=== PATIENT | male | born 1930 | race Asian ===

== ENCOUNTER 2017-09-28 21:16 | Inpatient (IN) | payer MEDICAID, MEDICARE ==
[~2017-09-28] VITALS: Ht 157.5 cm; Wt 37.6 kg
[2017-09-28 22:17] LABS: RED CELL DISTRIBUTION WIDTH 13.6 % (11.5-14.5)
[2017-09-28 22:22] LABS: BASOPHIL % 0 % (0-2); PLATELET COUNT 89 x10^3mcL (130-400)
[2017-09-28 22:48] LABS: CALCIUM 8.6 mg/dL (8.5-10.1); CARBON DIOXIDE 34.9 mmol/L (21-32); CHLORIDE SERUM 88 mmol/L (98-107); CREATININE SERUM 0.8 mg/dL (0.7-1.3); GLUCOSE SERUM 107 mg/dL (74-106); POTASSIUM SERUM 4.4 mmol/L (3.5-5.1); SODIUM SERUM 126 mmol/L (136-145)
[2017-09-28 22:57] LABS: ALBUMIN 3.4 g/dL (3.4-5.0); ALKALINE PHOSPHATASE 74 U/L (46-116); ALT/SGPT 20 U/L (16-63); AST/SGOT 29 U/L (15-37); BILIRUBIN TOTAL 0.5 mg/dL (0.20-1.00); FREE T4 1.21 ng/dL (0.76-1.46)
[2017-09-28 22:58] LABS: TOTAL PROTEIN, SERUM 9.1 g/dL (6.4-8.2)
[2017-09-29] VITALS (7 sets, daily range): BP systolic 113–163; BP diastolic 57–75; Ht 157.5 cm; Wt 37.6 kg
[2017-09-29] MEDS ORDERED: FERROUS SULFAT325 M2 PO (00:25)
[2017-09-29] MEDS ORDERED: OMEPRAZOLE40 M1 PO (00:26)
[2017-09-29] MEDS ORDERED: SPIRIVA18 MC1 INH (00:26)
[2017-09-29] MEDS ORDERED: VENTOLIN H0.09 MG/A1 INH (00:27)
[2017-09-29 00:36] LABS: microscopic required? YES; urine erythrocyte 2+ (NEGATIVE)
[2017-09-29 00:43] LABS: MAGNESIUM 1.8 mg/dL (1.8-2.4); PHOSPHOROUS 2.8 mg/dL (2.5-4.9)
[2017-09-29 00:45] LABS: CHOLESTEROL/HDL RATIO 1.5
[2017-09-29 00:46] LABS: AMPHETAMINE QUAL UR NONE DETECTED (NEG <=1000)
[2017-09-29 07:23] LABS: CARBON DIOXIDE 32.9 mmol/L (21-32); CHLORIDE SERUM 90 mmol/L (98-107); CREATININE SERUM 0.7 mg/dL (0.7-1.3); GLUCOSE SERUM 90 mg/dL (74-106); POTASSIUM SERUM 4.3 mmol/L (3.5-5.1); SODIUM SERUM 128 mmol/L (136-145)
[2017-09-29 07:25] LABS: BASOPHIL % 0.2 % (0-2); PLATELET COUNT 78 x10^3mcL (130-400); RED CELL DISTRIBUTION WIDTH 13.5 % (11.5-14.5)
[2017-09-30 04:57] VITALS: BP 128/59
[2017-09-30 08:01] LABS: CALCIUM 7.8 mg/dL (8.5-10.1); CARBON DIOXIDE 31.9 mmol/L (21-32); CHLORIDE SERUM 90 mmol/L (98-107); CREATININE SERUM 0.6 mg/dL (0.7-1.3); GLUCOSE SERUM 102 mg/dL (74-106); MAGNESIUM 1.6 mg/dL (1.8-2.4); PHOSPHOROUS 2.8 mg/dL (2.5-4.9); POTASSIUM SERUM 4.4 mmol/L (3.5-5.1); SODIUM SERUM 125 mmol/L (136-145)
[2017-09-30 08:07] LABS: BASOPHIL % 0.1 % (0-2); RED CELL DISTRIBUTION WIDTH 13.1 % (11.5-14.5)
[2017-09-30 08:12] LABS: PLATELET COUNT 72 x10^3mcL (130-400)
[2017-09-30 09:03] VITALS: BP 131/60
[2017-09-30 12:51] VITALS: BP 143/66
[2017-09-30 17:33] VITALS: BP 134/62
[2017-09-30 19:30] VITALS: BP 135/67
[2017-10-01 06:13] VITALS: BP 151/72
[2017-10-01 09:41] VITALS: BP 156/74
[2017-10-01 10:00] LABS: BASOPHIL % 0.3 % (0-2); RED CELL DISTRIBUTION WIDTH 13.8 % (11.5-14.5)
[2017-10-01 10:03] LABS: PLATELET COUNT 84 x10^3mcL (130-400)
[2017-10-01 10:24] LABS: CALCIUM 7.9 mg/dL (8.5-10.1); CARBON DIOXIDE 30.9 mmol/L (21-32); CHLORIDE SERUM 89 mmol/L (98-107); CREATININE SERUM 0.6 mg/dL (0.7-1.3); GLUCOSE SERUM 96 mg/dL (74-106); MAGNESIUM 1.7 mg/dL (1.8-2.4); POTASSIUM SERUM 4.7 mmol/L (3.5-5.1)
[2017-10-01 10:51] LABS: SODIUM SERUM 124 mmol/L (136-145)
[2017-10-01 16:56] VITALS: BP 139/73
[2017-10-01] MEDS ORDERED: LEVAQUIN750 MG PO ×3 (17:25→17:39)
[2017-10-01] MEDS ORDERED: LAC PO ×2 (17:25→17:39)
[2017-10-01] MEDS ORDERED: SODIUM CHLORIDE1 G2 PO ×2 (17:27→17:39)
[2017-10-01] MEDS ORDERED: FLONS (17:39)
[2017-10-01] MEDS ORDERED: SPIRIVA18 MC1 INH (17:39)
[2017-10-01] MEDS ORDERED: OMEPRAZOLE40 M1 PO (17:39)
[2017-10-01] MEDS ORDERED: FERROUS SULFAT325 M2 PO (17:39)
[2017-10-01] MEDS ORDERED: VENTOLIN H0.09 MG/A1 INH (17:39)
[2017-10-01 18:15] VITALS: BP 139/73
[2017-10-01 18:20] VITALS: BP 139/73
== END 2017-10-01 19:16 | disposition home health service (06) | DRG 137 ==
LOC: ED 21:16 → DU 23:20 → MU 23:20 → DU 09-29 01:20 → MU 09-30 08:15
PROVIDERS: Emergency Medicine; Family Medicine
DX: J69.0 Pneumonitis due to inhalation of food and vomit (principal); J96.22 Acute and chronic respiratory failure with hypercapnia; N17.0 Acute kidney failure with tubular necrosis; G93.41 Metabolic encephalopathy; E44.0 Moderate protein-calorie malnutrition; D69.6 Thrombocytopenia, unspecified; E87.1 Hypo-osmolality and hyponatremia; J84.10 Pulmonary fibrosis, unspecified; N39.0 Urinary tract infection, site not specified; E86.0 Dehydration; R80.9 Proteinuria, unspecified; K59.00 Constipation, unspecified; D63.8 Anemia in other chronic diseases classified elsewhere; N28.1 Cyst of kidney, acquired; M62.50 Muscle wasting and atrophy, not elsewhere classified, unspecified site; M85.80 Other specified disorders of bone density and structure, unspecified site; Z68.1 Body mass index [BMI] 19.9 or less, adult; Z95.0 Presence of cardiac pacemaker
CPT/HCPCS: 36600; 83880; 84439; 87804; 92610; J1956; J2543; J3475; J3490; J7030; J7040; J7620; Q0092

== ENCOUNTER 2017-12-24 15:39 | Inpatient (IN) | payer MEDICAID, MEDICARE ==
[~2017-12-24] VITALS: Ht 167.6 cm; Wt 47.7 kg
[~2017-12-24 15:39] MED LIST: FERROUS SULFAT325 M2 PO; FLONS; LAC PO; LEVAQUIN750 MG PO; OMEPRAZOLE40 M1 PO; SODIUM CHLORIDE1 G2 PO; SPIRIVA18 MC1 INH; VENTOLIN H0.09 MG/A1 INH
[2017-12-24 15:44] VITALS: Ht 167.6 cm; Wt 47.7 kg
[2017-12-24 16:10] LABS: RED CELL DISTRIBUTION WIDTH 12.5 % (11.5-14.5)
[2017-12-24 16:12] LABS: BASOPHIL % 0 % (0-2); PLATELET COUNT 115 x10^3mcL (130-400)
[2017-12-24 16:35] LABS: ALKALINE PHOSPHATASE 95 U/L (46-116); ALT/SGPT 20 U/L (16-63); AST/SGOT 24 U/L (15-37); BILIRUBIN TOTAL 0.4 mg/dL (0.20-1.00); CALCIUM 8.7 mg/dL (8.5-10.1); CARBON DIOXIDE 36.6 mmol/L (21-32); CHLORIDE SERUM 82 mmol/L (98-107); CREATININE SERUM 0.6 mg/dL (0.7-1.3); GLUCOSE SERUM 105 mg/dL (74-106); POTASSIUM SERUM 4.8 mmol/L (3.5-5.1)
[2017-12-24 16:37] LABS: ALBUMIN 3.1 g/dL (3.4-5.0)
[2017-12-24 16:39] LABS: SODIUM SERUM 121 mmol/L (136-145)
[2017-12-24 17:09] LABS: CK-MB 1.4 ng/mL (0-3.6)
[2017-12-24 17:38] LABS: MAGNESIUM 1.8 mg/dL (1.8-2.4)
[2017-12-24 17:39] LABS: CHOLESTEROL/HDL RATIO 1.7
[2017-12-24 17:47] LABS: FREE T4 1.45 ng/dL (0.76-1.46); FREE THYROXINE INDEX 3.3 ug/dL (1.4-4.5); T3 TOTAL 0.61 ng/mL; T4(THYROXINE) 8.1 ug/dL (4.7-13.3)
[2017-12-24 17:56] LABS: UA SPECIFIC GRAVITY 1.015 (1.005-1.035); microscopic required? YES; urine erythrocyte TRACE (NEGATIVE)
[2017-12-24] MEDS ORDERED: DILTIAZEM HCL120 M2 PO (18:23)
[2017-12-24] MEDS ORDERED: LEFLUNOMIDE20 MG PO (18:24)
[2017-12-24 19:07] VITALS: BP 175/98
[2017-12-24 21:58] VITALS: BP 167/98
[2017-12-24 23:17] VITALS: BP 110/63
[2017-12-25 05:44] VITALS: BP 139/60
[2017-12-25 06:59] LABS: CALCIUM 8.4 mg/dL (8.5-10.1); CARBON DIOXIDE 33.8 mmol/L (21-32); CHLORIDE SERUM 86 mmol/L (98-107); CREATININE SERUM 0.7 mg/dL (0.7-1.3); GLUCOSE SERUM 122 mg/dL (74-106); MAGNESIUM 1.8 mg/dL (1.8-2.4); PHOSPHOROUS 3.9 mg/dL (2.5-4.9)
[2017-12-25 07:05] LABS: SODIUM SERUM 123 mmol/L (136-145)
[2017-12-25 07:06] LABS: BASOPHIL % 0 % (0-2); PLATELET COUNT 105 x10^3mcL (130-400); RED CELL DISTRIBUTION WIDTH 12.8 % (11.5-14.5)
[2017-12-25 09:49] VITALS: BP 130/57
[2017-12-25 14:11] VITALS: BP 126/63
[2017-12-25 17:22] VITALS: BP 145/65
[2017-12-25 17:29] LABS: CALCIUM 8.1 mg/dL (8.5-10.1); CARBON DIOXIDE 29.2 mmol/L (21-32); CHLORIDE SERUM 87 mmol/L (98-107); CREATININE SERUM 0.7 mg/dL (0.7-1.3); GLUCOSE SERUM 206 mg/dL (74-106); POTASSIUM SERUM 4.8 mmol/L (3.5-5.1)
[2017-12-25 17:39] LABS: SODIUM SERUM 123 mmol/L (136-145)
[2017-12-25 22:01] VITALS: BP 151/73
[2017-12-26 06:02] VITALS: BP 146/79
[2017-12-26 06:10] LABS: BASOPHIL % 0.1 % (0-2); RED CELL DISTRIBUTION WIDTH 13.2 % (11.5-14.5)
[2017-12-26 06:34] LABS: CALCIUM 8.2 mg/dL (8.5-10.1); CARBON DIOXIDE 33.3 mmol/L (21-32); CHLORIDE SERUM 90 mmol/L (98-107); CREATININE SERUM 0.6 mg/dL (0.7-1.3); GLUCOSE SERUM 122 mg/dL (74-106); POTASSIUM SERUM 5.1 mmol/L (3.5-5.1)
[2017-12-26 06:47] LABS: PLATELET COUNT 86 x10^3mcL (130-400)
[2017-12-26 06:59] LABS: SODIUM SERUM 124 mmol/L (136-145)
[2017-12-26 09:59] VITALS: BP 139/64
[2017-12-26 12:40] VITALS: BP 123/57
[2017-12-26 15:59] LABS: CALCIUM 7.9 mg/dL (8.5-10.1); CARBON DIOXIDE 34.8 mmol/L (21-32); CHLORIDE SERUM 92 mmol/L (98-107); CREATININE SERUM 0.7 mg/dL (0.7-1.3); GLUCOSE SERUM 88 mg/dL (74-106); POTASSIUM SERUM 4.8 mmol/L (3.5-5.1); SODIUM SERUM 125 mmol/L (136-145)
[2017-12-26 18:06] VITALS: BP 149/63
[2017-12-26 19:40] VITALS: BP 123/55
[2017-12-27 05:24] VITALS: BP 137/75
[2017-12-27 07:00] LABS: RED CELL DISTRIBUTION WIDTH 13.4 % (11.5-14.5)
[2017-12-27 07:10] LABS: BASOPHIL % 0 % (0-2); PLATELET COUNT 92 x10^3mcL (130-400)
[2017-12-27 07:31] LABS: CALCIUM 7.7 mg/dL (8.5-10.1); CARBON DIOXIDE 34.4 mmol/L (21-32); CHLORIDE SERUM 90 mmol/L (98-107); CREATININE SERUM 0.6 mg/dL (0.7-1.3); GLUCOSE SERUM 85 mg/dL (74-106); POTASSIUM SERUM 4.4 mmol/L (3.5-5.1); SODIUM SERUM 126 mmol/L (136-145)
[2017-12-27 09:42] VITALS: BP 149/80
[2017-12-27 13:00] VITALS: BP 106/52
[2017-12-27 18:39] VITALS: BP 156/82
[2017-12-27 21:38] VITALS: BP 140/66
[2017-12-28 05:36] VITALS: BP 143/78
[2017-12-28 06:08] LABS: BASOPHIL % 0.1 % (0-2); RED CELL DISTRIBUTION WIDTH 12.8 % (11.5-14.5)
[2017-12-28 06:29] LABS: CALCIUM 7.9 mg/dL (8.5-10.1); CARBON DIOXIDE 39.7 mmol/L (21-32); CHLORIDE SERUM 89 mmol/L (98-107); CREATININE SERUM 0.5 mg/dL (0.7-1.3); GLUCOSE SERUM 91 mg/dL (74-106); PLATELET COUNT 88 x10^3mcL (130-400); POTASSIUM SERUM 4.4 mmol/L (3.5-5.1); SODIUM SERUM 129 mmol/L (136-145)
[2017-12-28 08:45] VITALS: BP 153/78
[2017-12-28 12:34] VITALS: BP 133/58
[2017-12-28 18:08] VITALS: BP 138/71
[2017-12-28 20:07] VITALS: BP 155/85
[2017-12-29 06:16] VITALS: BP 147/79
[2017-12-29 06:24] LABS: BASOPHIL % 0.2 % (0-2); RED CELL DISTRIBUTION WIDTH 13.1 % (11.5-14.5)
[2017-12-29 06:30] LABS: PLATELET COUNT 86 x10^3mcL (130-400)
[2017-12-29 06:47] LABS: CALCIUM 8.3 mg/dL (8.5-10.1); CARBON DIOXIDE 35.5 mmol/L (21-32); CHLORIDE SERUM 86 mmol/L (98-107); CREATININE SERUM 0.5 mg/dL (0.7-1.3); GLUCOSE SERUM 84 mg/dL (74-106); POTASSIUM SERUM 4.5 mmol/L (3.5-5.1); SODIUM SERUM 125 mmol/L (136-145)
[2017-12-29 13:18] VITALS: BP 115/64
[2017-12-29 17:44] VITALS: BP 146/65
[2017-12-29 20:28] VITALS: BP 144/74
[2017-12-30 05:53] VITALS: BP 140/60
[2017-12-30 07:51] LABS: RED CELL DISTRIBUTION WIDTH 13.6 % (11.5-14.5)
[2017-12-30 07:52] LABS: PLATELET COUNT 83 x10^3mcL (130-400)
[2017-12-30 07:53] LABS: BASOPHIL % 0 % (0-2)
[2017-12-30 09:09] VITALS: BP 136/63
[2017-12-30 09:23] LABS: CALCIUM 8.7 mg/dL (8.5-10.1); CARBON DIOXIDE 36.5 mmol/L (21-32); CHLORIDE SERUM 87 mmol/L (98-107); CREATININE SERUM 0.6 mg/dL (0.7-1.3); GLUCOSE SERUM 113 mg/dL (74-106); POTASSIUM SERUM 5.1 mmol/L (3.5-5.1); SODIUM SERUM 126 mmol/L (136-145)
[2017-12-30 14:18] VITALS: BP 126/49
[2017-12-30 16:46] VITALS: BP 147/56
[2017-12-30 18:30] VITALS: BP 122/53
[2017-12-30 18:32] VITALS: BP 122/53
== END 2017-12-30 21:12 | DRG 137 ==
LOC: ED 15:39 → DU 17:14
PROVIDERS: Family Medicine; Internal Medicine Gastroenterology
PROC: 0DB78ZX Excision of Stomach, Pylorus, Via Natural or Artificial Opening Endoscopic, Diagnostic (ICD-10-PCS; principal; 2017-12-27 10:00)
PROC: 0D758ZZ Dilation of Esophagus, Via Natural or Artificial Opening Endoscopic (ICD-10-PCS; 2017-12-29)
PROC: 0DH63UZ Insertion of Feeding Device into Stomach, Percutaneous Approach (ICD-10-PCS; 2017-12-29 07:30)
DX: J69.0 Pneumonitis due to inhalation of food and vomit (principal); N17.0 Acute kidney failure with tubular necrosis; J96.22 Acute and chronic respiratory failure with hypercapnia; E43 Unspecified severe protein-calorie malnutrition; G93.41 Metabolic encephalopathy; R13.10 Dysphagia, unspecified; J44.1 Chronic obstructive pulmonary disease with (acute) exacerbation; J84.10 Pulmonary fibrosis, unspecified; D69.6 Thrombocytopenia, unspecified; E86.0 Dehydration; R31.9 Hematuria, unspecified; E87.1 Hypo-osmolality and hyponatremia; K21.9 Gastro-esophageal reflux disease without esophagitis; Z68.1 Body mass index [BMI] 19.9 or less, adult; K29.70 Gastritis, unspecified, without bleeding; K25.9 Gastric ulcer, unspecified as acute or chronic, without hemorrhage or perforation; K22.4 Dyskinesia of esophagus
CPT/HCPCS: 36600; 43235; 83880; 84439; 92610; 92610-GN; 94150; 97110-GP; 97116-GP; 97164; 97530-GP; C1769; J0360; J1200; J1610; J1956; J2250; J2310; J2930; J3010; J3490; J7030; J7042; J7050; J7613; J7620; J7626; Q0092

== ENCOUNTER 2017-12-31 10:57 | Emergency (ER) | payer MEDICARE, MEDICAID ==
[~2017-12-31] VITALS: Ht 162.6 cm; Wt 38.1 kg
[~2017-12-31 10:57] MED LIST changes: +DILTIAZEM HCL120 M2 PO; +LEFLUNOMIDE20 MG PO
[2017-12-31 11:01] VITALS: Ht 162.6 cm; Wt 38.1 kg
[2017-12-31 15:23] VITALS: BP 146/79
== END 2017-12-31 15:23 | disposition home or self-care (01) ==
LOC: EDSEX 10:57 → ED 10:57
DX: T85.838A Hemorrhage due to other internal prosthetic devices, implants and grafts, initial encounter (principal); R13.10 Dysphagia, unspecified; J44.9 Chronic obstructive pulmonary disease, unspecified; K21.9 Gastro-esophageal reflux disease without esophagitis